=== PATIENT | female | born 1960 | race African-American/Black ===

== ENCOUNTER 2020-03-27 19:22 | Inpatient (IN) | payer OTHER ==
[~2020-03-27] VITALS: Ht 160 cm; Wt 38.2 kg
[2020-03-27 19:32] VITALS: Ht 160 cm; Wt 38.2 kg
--- NOTE | 2020-03-27 19:47 | NUR ---
PT BIB [facility] AND PLACED IN BED. PT PLACED ON MONITOR AND VS DONE. PT WITH C/O INCREASED GENERALIZED WEAKNESS WITH N/V/D TODAY. PT WITH HX OF STROKE WITH LT SIDE WEAKNESS. PT DENIES ANY FEVER, RESP ILLNESS, OR URINARY PROBLEMS AT THIS TIME. NO SIGNS OF DISTRESS.
[2020-03-27 20:18] LABS: BASOPHIL % 0.1 % (0-2); PLATELET COUNT 341 x10^3mcL (130-400); RED CELL DISTRIBUTION WIDTH 16.6 % (11.5-14.5)
--- NOTE | 2020-03-27 20:19 | NUR ---
PT STATING SHE IS UNABLE TO GIVE URINE SAMPLE AT THIS TIME.
[2020-03-27 20:38] LABS: ALBUMIN 4.3 g/dL (3.4-5.0); BILIRUBIN TOTAL 0.99 mg/dL (0.20-1.00); CALCIUM 10.2 mg/dL (8.5-10.1); CARBON DIOXIDE 17.4 mmol/L (21-32); CREATININE SERUM 1.4 mg/dL (0.6-1.0); MAGNESIUM 1.7 mg/dL (1.8-2.4); PHOSPHOROUS 4.1 mg/dL (2.5-4.9)
[2020-03-27 20:40] LABS: POTASSIUM SERUM 2.5 mmol/L (3.5-5.1); TOTAL PROTEIN, SERUM 8.9 g/dL (6.4-8.2)
--- NOTE | 2020-03-27 21:50 | NUR ---
PT RESTING IN BED ON RT SIDE WITH NO SIGNS OF DISTRESS.
--- NOTE | 2020-03-27 22:45 | NUR ---
PT RESTING IN BED WITH BREATHS EVEN AND UNLABORED.
--- NOTE | 2020-03-27 23:30 | NUR ---
PT GIVEN SENA CARE WITH FRESH LINENS.
--- NOTE | 2020-03-27 23:49 | NUR ---
RESIDENT AT BEDSIDE.
--- NOTE | 2020-03-27 23:50 | NUR ---
REPORT GIVEN TO DINAH HUANG.
[2020-03-28] VITALS (8 sets, daily range): BP systolic 108–182; BP diastolic 73–99
[2020-03-28] MEDS ORDERED: TOPROL XL25 MG PO (00:08)
[2020-03-28] MEDS ORDERED: FORTAMET1000 MG PO (00:08)
[2020-03-28] MEDS ORDERED: PANTOPRAZOLE SO40 M1 PO (00:09)
[2020-03-28] MEDS ORDERED: HORIZANT300 MG PO (00:09)
[2020-03-28] MEDS ORDERED: PLAVIX75 M1 PO (00:09)
[2020-03-28 00:10] LABS: CALCIUM 9.1 mg/dL (8.5-10.1); CARBON DIOXIDE 15.6 mmol/L (21-32); CREATININE SERUM 1.2 mg/dL (0.6-1.0)
[2020-03-28 00:20] LABS: POTASSIUM SERUM 2.7 mmol/L (3.5-5.1)
--- NOTE | 2020-03-28 00:25 | NUR ---
RECEIVED PT FROM ER VIA GURNEY ACCOMPANIED BY RN AND EMT. PT TRANSFERRED TO ICU BED 10 WITH NO COMPLICATIONS. PT CONNECTED TO FULL TUCK POINTER HELPER/CONTINOUS PULSE OXIMETRY, VITALS READING: HR 115, NIBP 128/73 MAP 92, RR 22, SPO2 99%. PT IS A/OX4. SPEECH IS CLEAR. BREATHING IS E/U ON RA. SYMMETRICAL CHEST EXPANSION NOTED. LW IV INTACT/SECURED, NO S/S OF INFILTRATION NOTED. GENERALIZED WEAKNESS, L>R. ABD IS SOFT, FLAT, NONTENDER TO PALPATION. BOWEL SOUNDS ACTIVE X4 QUADRANTS. PT STS SHE HAS LOOSE STOOLS. BED IN LOW POSITION. CALL LIGHT IN REACH. WILL CONT TO MONITOR.
--- NOTE | 2020-03-28 00:38 | NUR ---
BLOOD SUGAR 233. INSULIN GTT INITIATED AT THIS TIME @ 0.1 UNIT/KG/HR PER DKA PROTOCOL
[2020-03-28 00:49] LABS: MAGNESIUM 2.7 mg/dL (1.8-2.4); PHOSPHOROUS 2.1 mg/dL (2.5-4.9)
--- NOTE | 2020-03-28 01:00 | NUR ---
NEW IV PLACED TO RFA AND RW 22 GAUGE. FLUSHED 10 ML OF NS WITH NO S/S OF INFILTRATION NOTED
[2020-03-28 05:42] LABS: CALCIUM 9.3 mg/dL (8.5-10.1); CARBON DIOXIDE 16.6 mmol/L (21-32); CREATININE SERUM 1.1 mg/dL (0.6-1.0); MAGNESIUM 2.3 mg/dL (1.8-2.4); POTASSIUM SERUM 3.7 mmol/L (3.5-5.1)
--- NOTE | 2020-03-28 06:07 | NUR ---
BLOOD SUGAR 197. NS INFUSION STOPPED AT THIS TIME. D51/2NS INITIATED @ 150 ML/HR. INSULIN GTT TITRATED TO 0.05 UNITS/KG/HR PER DKA PROTOCOL
--- NOTE | 2020-03-28 06:50 | NUR ---
ENTERED PT'S ROOM TO FIND RFA AND RW IV'S DISLODGED, WITH CATH INTACT. NEW IV PLACED TO 22 GAUGE, FLUSHED 10 ML OF NS WITH NO S/S OF INFILTRATION NOTED
--- NOTE | 2020-03-28 07:20 | NUR ---
REPORT GIVEN TO FREDY HUANG FOR CONTINUITY OF CARE. ALL QUESTIONS/CONCERNS ADDRESSED. ENDORSING ALL CARE
[2020-03-28 09:31] LABS: CARBON DIOXIDE 19.8 mmol/L (21-32); CHLORIDE SERUM 111 mmol/L (98-107); GFR1 > 60 mL/min; GLUCOSE SERUM 300 mg/dL (74-106); MAGNESIUM 2.1 mg/dL (1.8-2.4); PHOSPHOROUS 1.3 mg/dL (2.5-4.9); POTASSIUM SERUM 3.4 mmol/L (3.5-5.1); SODIUM SERUM 147 mmol/L (136-145)
--- NOTE | 2020-03-28 10:27 | NUR ---
PER PT'S SISTER REPORT IN PAST FEW DAYS PT WAS SHOWING FORGETFUL. PT IS CONFUSED. FREQUENTLY REORIENT PT.
--- NOTE | 2020-03-28 11:52 | NUR ---
PT REPORTED BURNING AND A LITTL PROBLEM SWALLOW JUICE. PT'S GLUCOSE 109. INSULINE DRIP AT 0.05UNIT/HR, INCREASE D5 1/2 NS FROM 150 TO 175. WILL CONTINUE DKA PROTOCOL.
[2020-03-28 12:03] LABS: CALCIUM 7.8 mg/dL (8.5-10.1); CHLORIDE SERUM 107 mmol/L (98-107); GFR1 > 60 mL/min; MAGNESIUM 1.8 mg/dL (1.8-2.4); SODIUM SERUM 139 mmol/L (136-145)
[2020-03-28 12:16] LABS: GLUCOSE SERUM 560 mg/dL (74-106)
--- NOTE | 2020-03-28 12:22 | NUR ---
DR. BECKER AWARE PT'S K 2.9 AND PT'S COMPLAINING ABOUT SWALLOWING.
[2020-03-28 13:25] LABS: POTASSIUM SERUM 2.9 mmol/L (3.5-5.1)
--- NOTE | 2020-03-28 15:57 | NUR ---
PT'S BP 182/90, HR 113, HYDRALYZINE 10MG IVP GIVEN PER PRN ORDER. WILL RECHECK.
[2020-03-28 16:35] LABS: CALCIUM 8.7 mg/dL (8.5-10.1); CARBON DIOXIDE 23.7 mmol/L (21-32); CHLORIDE SERUM 110 mmol/L (98-107); CREATININE SERUM 0.9 mg/dL (0.6-1.0); GFR1 > 60 mL/min; GLUCOSE SERUM 90 mg/dL (74-106); MAGNESIUM 1.7 mg/dL (1.8-2.4); POTASSIUM SERUM 3.1 mmol/L (3.5-5.1); SODIUM SERUM 145 mmol/L (136-145)
--- NOTE | 2020-03-28 16:35 | NUR ---
AFTER HYDRAYLYZINE 10MG GIVEN, RECHECK PT'S BP 108/81, HR 113.
--- NOTE | 2020-03-28 18:47 | NUR ---
THROUGH SHIFT PT IS REORIENTED FREQUENTLY. PT CAM COOPERATE WITH CARE, AA/O X 3 AT THIS TIME. PT'S GAP CLOSE X 1 11.3 @ 1600. PT STILL REFUSED TO EAT, IVF D5 1/2 NS IS INFUSING AT 200ML/HR, LAST GLUCOSE CHECK 93. PT IS INCONTINENT, UNABLE TO GIVE URINE SPECIMEN FOR UA. 40MEQ KCL IV GIVEN PER ORDER FOR LOW K+. WILL ENODOSE PT'S CARE TO ONCOMING NURSE.
--- NOTE | 2020-03-28 19:15 | NUR ---
RECEIVED REPORT FROM FREDY HUANG. ASSUMING CARE. PT CONNECTED TO FULL NET DEVELOPER/CONTINOUS PULSE OXIMETRY. HOB ELEVATED 30 DEGREES. BED IN LOW POSITION. CALL LIGHT IN REACH. SEE NURSE SHIFT ASSESSMENT FOR FURTHER CARE
[2020-03-28 20:10] LABS: CALCIUM 8.5 mg/dL (8.5-10.1); CARBON DIOXIDE 23.5 mmol/L (21-32); CHLORIDE SERUM 109 mmol/L (98-107); CREATININE SERUM 0.8 mg/dL (0.6-1.0); GFR1 > 60 mL/min; GLUCOSE SERUM 73 mg/dL (74-106); MAGNESIUM 1.6 mg/dL (1.8-2.4); SODIUM SERUM 145 mmol/L (136-145)
[2020-03-28 20:19] LABS: PHOSPHOROUS 0.9 mg/dL (2.5-4.9)
--- NOTE | 2020-03-28 20:30 | NUR ---
DR. GALAN MADE AWARE OF CRITICAL LAB RESULT PHOS 0.9. ALSO MADE AWARE OF MAGNESIUM LEVEL 1.6. AWAITING ORDERS
--- NOTE | 2020-03-29 00:47 | NUR ---
ADJUNCT PHYSICAL EDUCATION INSTRUCTOR AT BEDSIDE FOR BLOOD DRAW
[2020-03-29 01:44] LABS: CALCIUM 8.5 mg/dL (8.5-10.1); CARBON DIOXIDE 26.5 mmol/L (21-32); CHLORIDE SERUM 106 mmol/L (98-107); CREATININE SERUM 0.9 mg/dL (0.6-1.0); GFR1 > 60 mL/min; GLUCOSE SERUM 103 mg/dL (74-106); MAGNESIUM 1.5 mg/dL (1.8-2.4); POTASSIUM SERUM 3.1 mmol/L (3.5-5.1); SODIUM SERUM 143 mmol/L (136-145)
[2020-03-29 01:45] LABS: PHOSPHOROUS 0.8 mg/dL (2.5-4.9)
--- NOTE | 2020-03-29 02:01 | NUR ---
DR. GALAN MADE AWARE OF CRITICAL LAB RESULT PHOS 0.8. ALSO MADE AWARE OF MAGNESIUM LEVEL 1.5 AND POTASSIUM 3.1. AWAITING ORDERS
--- NOTE | 2020-03-29 02:47 | NUR ---
BLOOD SUGAR 206. D51/2NS TITRATED TO 150 ML/HR
--- NOTE | 2020-03-29 02:53 | NUR ---
PT HAD 1 EMESIS EPISODE. ADMINISTERED ZOFRAN PER EMAR
[2020-03-29 03:09] VITALS: BP 92/51
[2020-03-29 04:34] LABS: CALCIUM 8.1 mg/dL (8.5-10.1); CARBON DIOXIDE 22.7 mmol/L (21-32); CHLORIDE SERUM 105 mmol/L (98-107); CREATININE SERUM 0.7 mg/dL (0.6-1.0); GFR1 > 60 mL/min; GLUCOSE SERUM 179 mg/dL (74-106); MAGNESIUM 1.8 mg/dL (1.8-2.4); POTASSIUM SERUM 3.2 mmol/L (3.5-5.1); SODIUM SERUM 140 mmol/L (136-145)
[2020-03-29 04:37] LABS: ALBUMIN 2.8 g/dL (3.4-5.0); PHOSPHOROUS 0.7 mg/dL (2.5-4.9)
[2020-03-29 04:43] LABS: BASOPHIL % 0.1 % (0-2); PLATELET COUNT 244 x10^3mcL (130-400)
--- NOTE | 2020-03-29 04:43 | NUR ---
DR. GALAN MADE AWARE OF CRITICAL LAB 0.7 WELL POTASSIUM LEVEL OF 3.2. PER DR. GALAN, WILL INPUT ORDERS
[2020-03-29 04:47] LABS: RED CELL DISTRIBUTION WIDTH 16.4 % (11.5-14.5)
--- NOTE | 2020-03-29 07:10 | NUR ---
REPORT GIVEN TO RYANN HUANG FOR CONTINUITY OF CARE. ALL QUESTIONS/CONCERNS ADDRESSED. ENDORSING ALL CARE
[2020-03-29 07:45] VITALS: BP 141/77
[2020-03-29 09:56] LABS: CALCIUM 8.4 mg/dL (8.5-10.1); CARBON DIOXIDE 24.1 mmol/L (21-32); CHLORIDE SERUM 104 mmol/L (98-107); CREATININE SERUM 0.6 mg/dL (0.6-1.0); GFR1 > 60 mL/min; GLUCOSE SERUM 129 mg/dL (74-106); SODIUM SERUM 139 mmol/L (136-145)
[2020-03-29 09:57] LABS: POTASSIUM SERUM 2.9 mmol/L (3.5-5.1)
--- NOTE | 2020-03-29 10:00 | NUR ---
REPORTED TO MD SIDDIQI THAT POTASSIUM IS 2.9, AND THAT POTASSIUM PHOSPHATE IS LATE DUE TO PHARMACY DELAYS
[2020-03-29 12:20] LABS: CALCIUM 7.9 mg/dL (8.5-10.1); CARBON DIOXIDE 22.5 mmol/L (21-32); CHLORIDE SERUM 105 mmol/L (98-107); CREATININE SERUM 0.6 mg/dL (0.6-1.0); GFR1 > 60 mL/min; GLUCOSE SERUM 129 mg/dL (74-106); MAGNESIUM 1.8 mg/dL (1.8-2.4); PHOSPHOROUS 2.3 mg/dL (2.5-4.9); POTASSIUM SERUM 3.1 mmol/L (3.5-5.1); SODIUM SERUM 138 mmol/L (136-145)
--- NOTE | 2020-03-29 12:30 | NUR ---
REPORTED TO MD BECKER ANION GAP CLOSED X2, PER PROTOCAL INSULIN DRIP & D5 1/2 NS D/C FLUIDS SWITCHED TO NS @ 150ML/HR
--- NOTE | 2020-03-29 14:51 | NUR ---
PRN HYDRALAZING ADMINISTERED FOR BP 162/77, HR 133, WILL CONTINUE TO MONITOR
--- NOTE | 2020-03-29 15:25 | NUR ---
REPORT GIVEN TO CATALINO HUANG, ENDORSED F/C PLACEMENT & K RIDER, ALL QUESTIONS & CONCERNS ANSWERED
[2020-03-29 17:00] VITALS: BP 131/46
--- NOTE | 2020-03-29 20:34 | NUR ---
Pt transfered from ICU to the floor at 1600. A/O times 4. VS upon arrival BP 131/46, p 129, T 98.8, pain 0/10, R 22, O2sat 87% on RA. Pt placed on O2 2L via NC and O2sat went up to 96%. Pt made comfortably in bed. Oriented pt to room and call light system. Nurse encourage pt to call nurse for assistance to prevent falls and pt agreed to call for help. Care plan endorsed to coming shift R.
[2020-03-29 21:48] VITALS: BP 133/67
--- NOTE | 2020-03-29 23:10 | NUR ---
NAYAK CATHETER INSERTED PER MD ORDER. OBSERVED STERILE TECHNIQUE, PROCEDURE TOLERATED WELL BY THE PT. CLEAR OLVIN COLOR URINE NOTED. WILL CONTINUE TO MONITOR.
--- NOTE | 2020-03-30 01:03 | NUR ---
PT RECEIVED IN BED RESTING COMFORTABLY WITH EYES CLOSED. EASILY AROUSABLE. PT A/O X4, ABLE TO MAKE HER NEEDS KNOWN. PT ON TELE 43, SINUS TACHY WITH HR OF 120'S, NO C/O CHEST PAIN. PT HAS +2 EDEMA NOTED ON LEFT HAND, RADIAL AND PEDAL PULSES PRESENT. RESP IS EVEN AND UNLABORED, NO SOB, NO ACUTE DISTRESS NOTED. ABDOMEN IS ROUND, SOFT AND NONTENDER, ACTIVE BOWEL SOUND NOTED. PT NOTED WITH GENERALIZED WEAKNESS, ABLE TO REPOSITION SELF IN BED WITH MINIMAL ASSIST. PT NOTED WITH MULTIPLE FLUID FILLED CLOSED BLISTER ON LEFT HAND AND EXCORIATION ON BUTTOCKS. WILL CONTINUE TO MONITOR PT. CALL LIGHT WITHIN REACH, BED IN LOWEST POSITION.
--- NOTE | 2020-03-30 01:20 | NUR ---
MADE ROUNDS. PT IN BED NO ACUTE DISTRESS NOTED.VERBALIZED DICOMFORT WITH RIGHT HAND IV SITE COVERED WITH MARQUITA BANDAGE. UPON REMOVING MARQUITA BANDAGE, RIGHT HAND APPEARS TO BE SWOLLEN WITH MULTIPLE CLOSED FLUID FILLED BLISTERS. RIGHT HAND ELEVATED. WILL CONTINUE TO MONITOR.
--- NOTE | 2020-03-30 05:00 | NUR ---
STARTED NEW IV ON THE LT WRIST G 22. PT TOLERATED PROCEDURE WELL.
--- NOTE | 2020-03-30 05:33 | NUR ---
DR. BECKER AND DR. DR. ARRIETA HERE TO GET UPDATE ON PT'S CONDITION DURING THE NIGHT. REPORTED THAT LANTUS WAS NOT GIVEN FOR BS OF 119 LAST NIGHT. ALSO REPORTED SWELLING AND BLISTERS TO BILAT HANDS. ALSO MADE AWARE OF PT'S POTASSIUM LEVEL YESTERDAY .
[2020-03-30 06:16] VITALS: BP 152/57
--- NOTE | 2020-03-30 07:10 | NUR ---
PT WAS GIVEN ORANGE JUICE W/ SUGAR X2 AND WAS RECHECKED X2. LAST BS =80. PT RESTING COMFORTABLY AT THIS TIME.
[2020-03-30 09:15] VITALS: BP 136/100
[2020-03-30 10:40] LABS: CALCIUM 7.7 mg/dL (8.5-10.1); CARBON DIOXIDE 24.6 mmol/L (21-32); CHLORIDE SERUM 108 mmol/L (98-107); CREATININE SERUM 0.8 mg/dL (0.6-1.0); GFR1 > 60 mL/min; GLUCOSE SERUM 128 mg/dL (74-106); MAGNESIUM 1.6 mg/dL (1.8-2.4); PHOSPHOROUS 2.2 mg/dL (2.5-4.9); SODIUM SERUM 144 mmol/L (136-145)
[2020-03-30 10:43] LABS: POTASSIUM SERUM 2.5 mmol/L (3.5-5.1)
[2020-03-30 10:46] LABS: BASOPHIL % 0.1 % (0-2); PLATELET COUNT 244 x10^3mcL (130-400)
[2020-03-30 10:51] LABS: RED CELL DISTRIBUTION WIDTH 15.3 % (11.5-14.5)
[2020-03-30 13:43] VITALS: BP 142/79
[2020-03-30 16:30] VITALS: BP 125/73
--- NOTE | 2020-03-30 17:19 | NUR ---
Initial Nutrition Assessment: 260B BAEZ, CIDNE 60F HR Nursing trigger: appears underweight/mal, N/V/D > 3d, poor PO > 3d Consult: FTT Dx: DKA PMHx: CVA, DM PSHx: none Labs: (03/30) WBC 3.8L, (03/29) BG 129H, BUN 2L, phos 2.3L, (03/27) A1C 10.4H Meds: Colace, lantus, Neutra-phos, Nicoderm, Reglan, Sodium chloride PRN meds: D50%, Humulin, Hydralazine, Colwich, Restoril, Tylenol, Zofran Diet: puree diet PO intake since admission: No entry Ht: 160.02cm/63in Wt: 38.2kg/84lbs BMI: 14.9 Bed scale: not accessible IBW: 52.27kg/115lbs %IBW: 73.1% UBW: 95lbs two weeks ago Age: 60 Food Allergies: NKFA Edema: +2 edema noted on left hand Last BM: none noted Skin: excoriation to bottom Luis: 16 Per H and P (03/27), pt is a 60 year old female with a past medical history of Diabetes and CVA, who lives in an extended stay facility, she was brought in by ambulance after her post anesthesia care unit nurse called 911. she reports feeling "extremely sick", Patient also stated she has been having some nausea/vomiting and diarrhea. Patient denies any fever, cough, headache, chest pain, abdominal pain, pain with urination or any sensory/motor deficit. She denied of known exposure to COVID-19. Patient blood sugar was found to be 440, she was found to have DKA and will be admitted to ICU for further care. Pt was admitted with dx: DKA, hypokalemia, dehydration, rhabdomyolysis, DEBBIE, hypercalcemia, hypomagnesemia, mild hypernatremia, h/ox of left CVA, DVT RD Note (03/30) Pt was lying in bed, whole body covered by blanket during visit. RD asked pt why she's under all her blanket, and pt replied that she's cold. It was hard to hear pt d/t pt covering her face during assessment. Pt denied GI distress, chewing/swallowing difficulty. Pt reported no appetite, and mentioned that she had been this skinny her whole life. Pt's left leg was visible during assessment, and signs of muscle wasting was observed in patellar region. Pt claimed that she's avoiding sugar and carbohydrate, and she was doing well maintaining her blood sugar. However, pt's A1C was 10.4. Per Dr. Shen, pt was on calorie counts, and family was agreeable to possible tube feeding. Problem with: N/V/D/C: none per pt Problems with: Chewing: Swallowing: none per pt Current appetite: no appetite per pt Recent wt change: unknown per pt %wt change: 12% weight loss in 2 weeks per wt reported by pt Vitamin/Supplement use: no per pt Special diet at home: pt tried to avoid sugar per pt Physical activity: n/a Nutrition education given (specify specific nutrition education and handout given): RD tried providing diabetic education, and pt refused. Pt stated that she was doing a good job maintaining her sugar level. RD encouraged pt to use her ONS provided with her diet, and pt acknowledged. Food-drug interactions? Education given? n/a Estimated Nutritional Needs Based on current body weight (38kg) Energy: 9540-9574 kcal/day (30-35 kcal/kg for severe underweight) Protein: 45-57 g/day (1.2-1.5 g/kg for severe underweight) Fluid: 1303-7232 mL/day (1 mL/kcal) Nutrition Diagnosis: 1. Severe underweight r/t pathophysiological cause a/e/b pt BMI < 16.5 (BMI=14.9 on 03/30), and signs of muscle wasting in patellar region. 2. Inadequate energy and protein intake r/t poor appetite a/e/b pt reported not having appetite. Intervention 1. Recommend continue Puree diet as tolerate 2. Recommend glucerna BID for lunch and dinner to aid PO intake. 3. Follow up with calorie counts. If enteral nutrition is needed, recommend glucerna 1.2 at 20 ml/hr. It will provide a volume of 480ml, 576kcal, 29g protein and 386.4ml fluid. 4. Pt is at risk of refeeding syndrome. Monitor and replenish electrolytes. Monitor/Evaluate Goal: PO intake at least 75% of estimated needs. Monitor: PO intake, ONS intake, Diet implementation, Labs, GI function F/U in 2-3 days as high risk 04/01-
--- NOTE | 2020-03-30 19:30 | NUR ---
PT RECEIVED IN BED, RESTING COMFORTABLY WITH EYES CLOSED. PT IS A/O X 3, ABLE TO MAKE HER NEEDS KNOWN. PT ON TELE 43 WITH SINUS TACHY HR READING 110-120'S, NO C/O CHEST PAIN. RESPE IS EVEN AND UNLABORED, NOTED WITH SOME EXP WHEEZING ON RIGHT UPPER LOBE, OCCASIONAL COUGHING/ CLEARING THROAT NOTED. SPO2 93% ON RA. NO ACUTE DISTRESS NOTED. RADIAL AND PEDAL PULSES PRESENT WITH REGULAR RYTHM, LUNA HAND NON PITTING EDEMA NOTED. PT STARTED ON CALORIE COUNTING PER REPORT FROM DAY SHIFT. WILL CONTINUE TO MONITOR ORAL INTAKE. DIET CHANGED TO PUREE PER AM NURSE. PT ON NAYAK CATH DRAINING CLEAR OLVIN COLOR URINE. GENERALIZED WEAKNESS NOTED WELL LEFT SIDED WEAKNESS, PT ABLE TO REPOSITION IN BED WITH ASSIST. EXCORIATION ON BUTTOCKS, AND LUNA MULTIPLE HAND FLUID FILLED BLISTERS NOTED. PT DNIES PAIN AT THIS TIME. CALL LIGHT WITHIN EASY REACH, BED IN LOWEST POSITION, WILL CONTINUE TO MONITOR FOR CHANGES IN CONDITION.
--- NOTE | 2020-03-30 19:33 | NUR ---
Patient received drowsy but oriented on RA. Patient noted to have occasional periods of forgetfulness. Re-oriented as needed throughout shift. Assessment completed and charted, vital signs taken and recorded. Patient's IV fluids were adjusted multiple times throughout shift. First to add dextrose (due to low blood sugar levels), and eventually d/c altogether. Patient's lunchtime glu 136 but dinnertime glu 98. Patient encouraged to eat but does not have an appetite. Patient has scheduled reglan. Report given to production supervisor off shift RN for continuation of care. Safety precautions in place, call light within reach. Calorie count taken and is noted below: Breakfast 1 spoonful jello Lunch 1 spoonful mash potatoes 5 spoonfuls soup 15ml ensure 10ml apple juice Dinner 50ml soup 2 spoonfuls mash potatoes 2 spoonfuls chicken
[2020-03-30 22:15] VITALS: BP 125/73
--- NOTE | 2020-03-31 02:38 | NUR ---
MADE ROUNDS, PT IS IN BED AWAKE RESTING COMFORTABLY. NO C/O PAIN, NO ACUTE DISTRESS NOTED AT THIS TIME. OFFERED ORAL INTAKE. SOME CLOSED FLUID FILLED BLISTERS ON LUNA HANDS NOTICED TO HAVE OPENED UP, KEPT SKIN CLEAN AND DRY. WILL CONT TO MONITOR.
[2020-03-31 05:54] VITALS: BP 137/74
--- NOTE | 2020-03-31 06:37 | NUR ---
PT IN BED AWAKE, RESTING COMFORTABLY. NO C/O PAIN AT THIS TIME. CONT ON CALORIE COUNTING PER MD DOCTOR. PT ORAL INTAKE THIS SHIFT FOLLOWS HALF CUP OF APPLE SAUCE 120 CC OJ 120 CC HOT TEA ENCOURAGED PT ORAL INTAKE. BS 96, NO COVERAGE GIVEN. SPECIMEN COLLECTED FOR UA. F/C WITH 80 CC URINE OUTPUT, DIAMOND DIE POLISHER REPORTED SOILED LINEN WITH URINE. IV TO LEFT WRIST REMAINED INTACT, NO S/S OF INFILTRATION. CALL LIGHT WITHIN EASY REACH WILL CONT TO MONITOR AND ENDORSE TO AM NURSE.
[2020-03-31 07:00] LABS: PLATELET COUNT 211 x10^3mcL (130-400)
--- NOTE | 2020-03-31 07:20 | NUR ---
RECEIVED BEDSIDE REPORT FROM NIGHT RN. PT IN BED AWAKE. NO ACUTE DISTRESS. PT ON TELE#43. RR EVEN AND UNLABORED ON RA. NAYAK CATH INTACT DRAINING TO GRAVITY. CALL LIGHT WITHIN REACH. BED LOCKED IN LOWEST POSITION. WILL CONTINUE TO MONITOR.
[2020-03-31 07:27] LABS: BASOPHIL % 0 % (0-2); RED CELL DISTRIBUTION WIDTH 16.5 % (11.5-14.5)
[2020-03-31 07:37] LABS: CALCIUM 7.9 mg/dL (8.5-10.1); CHLORIDE SERUM 109 mmol/L (98-107); CREATININE SERUM 0.6 mg/dL (0.6-1.0); GFR1 > 60 mL/min; GLUCOSE SERUM 95 mg/dL (74-106); MAGNESIUM 1.7 mg/dL (1.8-2.4); PHOSPHOROUS 2.1 mg/dL (2.5-4.9); SODIUM SERUM 144 mmol/L (136-145)
[2020-03-31 08:27] LABS: UA SPECIFIC GRAVITY >=1.030 (1.005-1.035); microscopic required? YES; urine erythrocyte 2+ (NEGATIVE)
[2020-03-31 08:28] VITALS: BP 153/72
--- NOTE | 2020-03-31 10:15 | NUR ---
PT REQUESTED YOGURT AND COTTAGE CHEESE. PT HAS POOR APPETITE. COTTAGE CHEESE BROUGHT TO PT FROM KITCHEN. WILL CONTINUE TO MONITOR.
[2020-03-31 12:06] VITALS: BP 120/67
--- NOTE | 2020-03-31 15:30 | NUR ---
PT ASLEEP IN BED. NO ACUTE DISTRESS. HOB ELEVATED. CALL LGIHT WITHIN REACH. ALL NEEDS MEET AT THIS TIME. WILL CONTINUE TO MONITOR.
[2020-03-31 15:55] VITALS: BP 133/72
--- NOTE | 2020-03-31 19:15 | NUR ---
BEDSIDE REPORT GIVEN TO NIGHT RN. CARE ENDORSED TO NIGHT RN.
[2020-03-31 20:48] VITALS: BP 136/64
--- NOTE | 2020-04-01 05:05 | NUR ---
@ 2000 A/A/O X4.DENIES ANY DISCOMFORT NOR CP @ THIS TIME.DENIES SOB.NOTED WITH LEFT SIDED WEAKNESS.TOTAL CARE. ON CALORIE COUNT.INSTRUCTED TO USE CALL LIGHT NEEDED;WITHIN REACH.AFEBRILE.VS STABLE.
--- NOTE | 2020-04-01 05:13 | NUR ---
@ 2100 FINGER STICK BLD SUGA 185.REGULAR ISULI 3 UNIT SUB Q ADM.DUE MEDS ADM.
--- NOTE | 2020-04-01 05:15 | NUR ---
@ 0000 DUE MED ADM.
--- NOTE | 2020-04-01 05:16 | NUR ---
@ 0400 ASLLEP IN NO ACUTE DISTRESS.CALL LIGHT WITHIN REACH.
--- NOTE | 2020-04-01 05:16 | NUR ---
@0200 RESTING COMFORTABLY IN NO ACUTE DISTRESS.
[2020-04-01 05:21] LABS: BASOPHIL % 0.1 % (0-2); PLATELET COUNT 222 x10^3mcL (130-400); RED CELL DISTRIBUTION WIDTH 16.2 % (11.5-14.5)
[2020-04-01 05:56] LABS: CALCIUM 7.6 mg/dL (8.5-10.1); CARBON DIOXIDE 28.9 mmol/L (21-32); CHLORIDE SERUM 106 mmol/L (98-107); CREATININE SERUM 0.6 mg/dL (0.6-1.0); GFR1 > 60 mL/min; GLUCOSE SERUM 136 mg/dL (74-106); MAGNESIUM 1.5 mg/dL (1.8-2.4); PHOSPHOROUS 2.4 mg/dL (2.5-4.9); POTASSIUM SERUM 3.3 mmol/L (3.5-5.1); SODIUM SERUM 143 mmol/L (136-145)
[2020-04-01 06:01] VITALS: BP 147/68
--- NOTE | 2020-04-01 07:07 | NUR ---
ENDORSED A/A IN NO ACUTE DISTRESS.NO S/S OF HYPO/HYPERGLYCEMIA NOTED.CALL LIGHT WITHI REACH.SAFETY MAINTAINED.
[2020-04-01 09:24] VITALS: BP 154/86
[2020-04-01 12:20] VITALS: BP 150/90
[2020-04-01 17:34] VITALS: BP 152/79
--- NOTE | 2020-04-01 18:12 | NUR ---
P.T. NOTES Pt REFUSED TO PARTICIPATE W/ P.T., EXPLAINED RISKS OF BEDBOUND, BENEFITS OF THERAPY, Pt STILL REFUSED, INITIALLY WAS PLEASANT CONVERSING W/ P.T. STAFF, BRIEFLY CHANGES MOOD & BECAME IRRITABLE, ARGUMENTATIVE, EASILY ANGRY; FF UP WHEN PARTICIPATIVE; CALL REYES, PHONE, TABLE IN REACH, BED ALARM ON, Pt TENDS TO COVER HER HEAD W/ HER BLANKET.
--- NOTE | 2020-04-01 18:37 | NUR ---
Pt alert and oriented and in a stable condition. All interventions carried out per protocol with no significant changes noted. new 22 g iv inserted in right forearm. calorie count continueing. pt AAOx4 but was removing her IV and tele leads so she was transferred to [facility] with a sitter. blisters noted on bilateral hands. left sided weakness noted.
[2020-04-01 20:14] VITALS: BP 149/80
--- NOTE | 2020-04-02 01:28 | NUR ---
@ 1999 A/A/ OX3.DENIES ANY DISCOMFORT NOR CP @ THIS TIME.DENIES SOB. ON CALORIE COUNT. NOTED BILATERAL HANDS WITH BLISTERS. OPTIFOAM ON SACRAL AREA D/I. AFEBRILE. BP 149/80 MM HG.O2 SAT ON RA 97. TELE SHOWED ST.
--- NOTE | 2020-04-02 01:37 | NUR ---
@ 2100 DUE MED ADM. FINGER STICK BLD SUGAR 197.REGULAR 3 UNITS SUB Q ADM. REFUSED SNACKS.
--- NOTE | 2020-04-02 01:39 | NUR ---
@ 0000 DUE MEDS ADM..
[2020-04-02 05:30] VITALS: BP 185/82
--- NOTE | 2020-04-02 06:41 | NUR ---
@ 0400 ASLEE IN NO ACUTE DISTRESS. CECI @ THE BS.
--- NOTE | 2020-04-02 06:41 | NUR ---
@ 0200 RESTING COMFORTABLY IN NO ACUTE DISTRESS.
--- NOTE | 2020-04-02 06:42 | NUR ---
@ 0610 FINGER STICK BLD SUGAR 97.
--- NOTE | 2020-04-02 06:43 | NUR ---
ENDORSED IN NO ACUTE DISTRESS.NO S/S OF HYPO/HYPERGLYCEMIA NOTED.SAFETY MAINTAINED.
[2020-04-02 09:00] VITALS: BP 146/71
[2020-04-02 12:30] VITALS: BP 128/61
--- NOTE | 2020-04-02 13:59 | NUR ---
PT IS AAOX4 AND COOPERATIVE. ON RA AND SAT 94% WITH NO DISTRESS NOTED. ON TELE NUMBER 43 AND IN NSR. ALL INTERVENTIONS CARRIED OUT PER PROTOCOL WITH NO SIGNIFICANT CHANGES IN PT STATUS NOTED. PT DENIES ANY PAIN, BLISTERS AND MILD SWELLING NOTED ON BILATERAL HANDS. IV PATENT AND FLUSHING WELL. CALL LIGHT WITHIN REACH AND BED AT LOW POSITION. ALL NEEDS MET AND SAFETY MAINTAINED.
[2020-04-02 15:54] VITALS: BP 150/74
[2020-04-02 21:09] VITALS: BP 100/42
[2020-04-03 05:53] VITALS: BP 126/62
--- NOTE | 2020-04-03 06:42 | NUR ---
NN: PT NOTED WITH MULTIPLE LOOSE BOWEL MOVEMENT, MD GALAN NOTIFIED, NO NEW ORDERS AT THIS TIME, WILL GIVE REPORT TO INCOMING RN
[2020-04-03 06:52] LABS: BASOPHIL % 0.1 % (0-2); PLATELET COUNT 223 x10^3mcL (130-400)
[2020-04-03 07:24] LABS: CARBON DIOXIDE 26.8 mmol/L (21-32); CHLORIDE SERUM 108 mmol/L (98-107); CREATININE SERUM 0.6 mg/dL (0.6-1.0); GFR1 > 60 mL/min; GLUCOSE SERUM 161 mg/dL (74-106); MAGNESIUM 1.8 mg/dL (1.8-2.4); POTASSIUM SERUM 3.6 mmol/L (3.5-5.1); SODIUM SERUM 145 mmol/L (136-145)
[2020-04-03 07:49] LABS: RED CELL DISTRIBUTION WIDTH 17.1 % (11.5-14.5)
[2020-04-03 08:44] VITALS: BP 119/57
--- NOTE | 2020-04-03 10:55 | NUR ---
AT 0715 - RECEIVED PATIENT FROM NIGHT NURSE. SLEEPING. RESPIRATIONS REGULAR. MONITOR SHOWING SINUS RHYTHM; RATE 80'S. NAYAK CATHETER INSITU AT 0850 - AWAKE, ALERT AND APPEARS ORIENTED. SAT UP IN BED FOR BREAKFAST. AT 0945 - HAS EATEN 50% OF PURREED FOOD FROM BREAKFAST TRAY. PATIENT REFUSED NICODERM PATCH.
--- NOTE | 2020-04-03 11:30 | NUR ---
NASAL SWAB FOR COVID-19 TAKEN AND DELIVERED TO LAB. SWAB DONE FOR PLACEMENT PURPOSES.
[2020-04-03 12:48] VITALS: BP 116/56
--- NOTE | 2020-04-03 16:08 | NUR ---
Follow-up Nutrition Assessment: 252A SASHA, BRY 60F HR Dx: DKA PMHx: CVA, DM Labs: (04/03) H/H 8.6/28L, CL 108H, BUN 5L, BG 161H, POC BG 157H, Calcium 8L, (04/01) Phos 2.4L, (03/29) Alb 2.8L, (03/27) 10.4H, AST 45H Meds: Colace, Lantus, Neutra-phos, Nicoderm, Reglan, Remeron PRN meds: D50%, Humulin, Hydralazine, Mucinex, Restoril, Tylenol, Zofran Diet: puree diet, glucerna BID for lunch and dinner PO Intake: 40-90% x 5 meals with average PO intake of 60% Weights: (04/03) 38.2kg, (03/30) 38.2kg/84lbs *no change Edema: none noted Last BM: 04/02 Skin: closed blisters on hand Luis: [address] (03/30), Pt was lying in bed, whole body covered by blanket during visit. RD asked pt why she's under all her blanket, and pt replied that she's cold. It was hard to hear pt d/t pt covering her face during assessment. Pt denied GI distress, chewing/swallowing difficulty. Pt reported no appetite, and mentioned that she had been this skinny her whole life. Pt's left leg was visible during assessment, and signs of muscle wasting was observed in patellar region. Pt claimed that she's avoiding sugar and carbohydrate, and she was doing well maintaining her blood sugar. However, pt's A1C was 10.4. Per Dr. Shen, pt was on calorie counts, and family was agreeable to possible tube feeding. RD Note (04/03): Pt had average PO intake of 60% since last visit. Pt's diet approximately provided 1197kcal and 56g protein meeting 100% of estimated kcal needs and protein needs. Pt was seen lying in bed, covered by blanket. However, pt was more engaging with the conversation this time, and she got out of her blanket. Pt reported good appetite and being hungry. Pt reported tolerating diet with no chewing/swallowing difficulty, and pt had been drinking her supplements. However, pt had 25% of her lunch tray per observation, and glucerna was untouched. Encouraged pt to increase PO intake and keep drinking ONS comes with meals, and pt acknowledged. RD tried follow up with calories count, but it was not available d/t they were not filled out per dietary assistant. Estimated Nutritional Needs Based on current body weight (38kg) Energy: 6103-1209 kcal/day (30-35 kcal/kg for severe underweight) Protein: 45-57 g/day (1.2-1.5 g/kg for severe underweight) Fluid: 5416-5941 mL/day (1 mL/kcal) Nutrition Diagnosis: (ongoing) 1. Severe underweight r/t pathophysiological cause a/e/b pt BMI < 16.5 (BMI=14.9 on 03/30), and signs of muscle wasting in patellar region. (resolved) 2. Inadequate energy and protein intake r/t poor appetite a/e/b pt reported not having appetite. Intervention 1. Continue Puree diet as tolerate 2. Continue glucerna BID for lunch and dinner to aid PO intake. 3. RD will keep monitor pt's PO intake and ONS intake. 4. Continue to encourage PO and ONS intake. 5. RD will follow up with MD/ACCURACY EXPERT for alternative nutrition. If enteral nutrition is needed, recommend glucerna 1.2 at 20 ml/hr. It will provide a volume of 480ml, 576kcal, 29g protein and 386.4ml fluid. Monitor/Evaluate Goal: PO intake at least 75% of estimated needs. (met, ongoing goal) Monitor: PO intake, ONS intake, Diet implementation, Labs, GI function F/U in 2-3 days as high risk
--- NOTE | 2020-04-03 16:08 | NUR ---
1. Continue Puree diet as tolerate 2. Continue glucerna BID for lunch and dinner to aid PO intake. 3. RD will keep monitor pt's PO intake and ONS intake. 4. Continue to encourage PO and ONS intake. 5. RD will follow up with MD/SAP HANA ARCHITECT for alternative nutrition. If enteral nutrition is needed, recommend glucerna 1.2 at 20 ml/hr. It will provide a volume of 480ml, 576kcal, 29g protein and 386.4ml fluid.
[2020-04-03 16:51] VITALS: BP 122/62
--- NOTE | 2020-04-03 19:16 | NUR ---
SLEEPING GREATER PART OF AFTERNOON. WHEN AWAKE, ORIENTED X 3. VSS WNL, AFEBRILE. IV SALINE LOCKED. PATIENT REFUSING SOME MEDS. EATING A PUREED DIET. ENCOURAGED FOOD CONSUMPTION. NAYAK CATHETER DRAINING OLVIN URINE. CARE ENDORSED TO NIGHT NURSE.
[2020-04-03 21:00] VITALS: BP 106/55
--- NOTE | 2020-04-03 21:02 | NUR ---
PT. AWAKE, ALERT, ORIENTED TO SELF AND PLACE. DENIES HEADACHE OR DIZZINESS. BREATH SOUNDS CLEAR THROUGHOUT LUNG APARICIO, RESP. EVEN, UNLABORED. NO SOB NOTED. PT. ON RA. NO IV ACCESS AT THIS TIME. PEDAL PULSES MODERATE. TRACE EDEMA TO LUNA HANDS. BLISTERS TO LUNA HANDS, NOTEMAN, NO DRAINAGE NOTED AT THIS TIME. F/C DRAINING WELL TO GRAVITY. DRSG TO SACRAL REGION, CDI. CALL LIGHT WITHIN REACH.
--- NOTE | 2020-04-04 00:15 | NUR ---
PT. REFUSED MEDICATION FOR MIDNIGHT. PT. STATED THAT SHE DOES NOT NEED MEDICATION FOR HER STOMACH BUT NEEDS HER OTHER CONCERNS ADDRESSED. CONCERNS WERE REGARDING THE REMOVAL OF HER F/C SO SHE COULD GO HOME. THOSE CONCERNS WERE ADDRESSED BUT PT. STILL DID NOT WANT HER MIDNIGHT MEDDS, REGLAN AND NEUTRA PHOS.
[2020-04-04 05:04] VITALS: BP 148/64
--- NOTE | 2020-04-04 06:19 | NUR ---
PT, WAS DOZING STILL, AWAKENED FOR AM MEDICATIONS. PT. A BIT AGITATED AFTER WAKING, BUT TOOK HER MEDICATIONS. IV SITE REMAINS HEPLOCKED AND PATENT. NO C/O PAIN THROUGHOUT THE NIGHT. BLISTER TO LUNA DORSAL HAND WITHOUT OOZING. 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 CALL LIGHT WITHIN REACH. WILL ENDORSE PT CARE TO INCOMING NURSE.
--- NOTE | 2020-04-04 07:30 | NUR ---
RECEIVED PT LYING IN BED A/A. BREATHING EQUAL/UNLABORED ON RA. NO ACUTE PAIN/DISTRESS. IV SITE WNL. BLISTERS TO BILAT HANDS. BED IN LOW POSITION, CALL LIGHT IN REACH, SAFETY PRECAUTIONS IN PLACE. WILL CONTINUE TO MONITOR
[2020-04-04 08:00] VITALS: BP 140/69
--- NOTE | 2020-04-04 12:30 | NUR ---
PT LYING IN BED A/A. BREATHING EQUAL/UNLABORED ON RA. NO ACUTE CHANGES/PAIN/DISTRESS. IV SITE WNL. NAYAK CLAMPED FOR BLADDER TRAINING AND REMOVAL. WILL CONTINUE TO MONITOR
[2020-04-04 12:57] VITALS: BP 120/59
--- NOTE | 2020-04-04 15:20 | NUR ---
.NAYAK REMOVED PER ORDER. PT ADDI WELL. 400ML OUTPUT
--- NOTE | 2020-04-04 15:25 | NUR ---
PT. ADMITTED WITH LOW LUCILLE SCALE AT RISK, AND CHANGE OF SKIN CONDITION WITH MULTIPLE BLISTERING TO RIGHT AND LEFT HANDS. CONTINUE TO FOLLOW PRESSURE ULCER PREVENTION INTERVENTIONS. PT IS AT BED REST, SHEET COVER FROM HEAD TO TOE, PT. REFUSED SKIN ASSESSMENT, ONLY BRING OUT THE RIGHT HAND AND STATE "YOU CAN TAKE A QUICK LOOK". EXPLAIN TO PT SKIN ASSESSMENT TO BUTTOCKS AND LEFT HAND, PT. REFUSED. RISK AND BENEFIT EXPLAINED.PT. ONLY ALLOW ME TO APPLY DRESSING TO RIGHT HAND. POC DISCUSSED WITH PRIMARY RN AND PT. PT VERBALIZES UNDERSTANDING. 1:1 SITTER AT BEDSIDE. BED IS AT LOW POSITION. RIGHT HAND MULTIPLE CLOSE CLEAR FLUIDS BLISTERS, 2 OPEN BLISTERS WITH LARGEST 1.5X1.5X0.1CM ON DORSAL HAND WOUND BED RED AND DRY, NO ODOR. SMALLEST TO RIGHT 4TH FINGER 0.8X0.5X0.1CM, WOUND BED IS PINK AND DRY, NO ODOR. ABLE TO MOVE ALL 5 FINGERS WITHOUT DIFFICULTY. RECOMMENDATIONS -APPLY ADAPTIC DRESSING TO BILATERAL HANDS BLISTERS AND WRAP WITH KERLIX ROLLS LOOSELY AND SECURE WITH TAPE QD AND PRN IF SOILING. -TURN AND REPOSITION PATIENT Q 2H -ASSESS AND MONITOR SKIN CONDITION DURING POSITION CHANGE -OFFLOAD BILATERAL HEELS BY PLACING PILLOWS UNDER CALVES AT ALL TIMES, UNLESS OTHERWISE CONTRAINDICATED -PRESSURE REDISTRIBUTION BY PLACING PILLOWS AND OFFLOADING SACRALCOCCYX -KEEP SKIN CLEAN AND DRY AT ALL TIMES. -APPLY Z-GUARD TO BUTTOCKS MAD BID AND PRN IF SOILING
[2020-04-04 16:54] VITALS: BP 124/61
--- NOTE | 2020-04-04 18:23 | NUR ---
PT LYING IN BED A/A. BREATHING EQUAL/UNLABORED ON RA. NO ACUTE CHANGES/PAIN/DISTRESS. IV SITE WNL. BANDAGE TO R. HAND, CDI. BED IN LOW POSITION, CALL LIGHT IN REACH, SAFETY PRECAUTIONS IN PLACE. WILL ENDORSE TO NIGHT NURSE
--- NOTE | 2020-04-04 19:40 | NUR ---
RECEIVED PT FROM DAYSHIFT NURSE. PT IS AAOX4, HAS EPISODES OF FORGETFULLNESS.PT DENIES HEADACHE/NAUSEA/DIZZINESS AT THIS TIME. PT IS MED SURG PATIENT, DENIES CHEST PAIN AT THIS TIME. OBSERVED NO ACUTE DISTRESS AT THIS TIME, PT DENIES SOB, ON RA. LAST BM 04/02 PER DAYSHIFT NURSE, VOIDS FREELY WITH NO ASSISTANCE. PT HAS IV TO RIGHT WRIST, IV SITE IS PATENT, NO REDNESS OR SWELLING AT THIS TIME. PT DENIES ASSESSMENT AT THIS TIME. PT STATED SHE DID NOT WANT NURSE TO TOUCH HER FOR ASSESSMENT. PT WAS IN A TENSE MOOD, POOR COMMUNICATE AND COOPERATION WITH NURSE. ALL COMFORT CARE ACCOUNTED FOR AT THIS TIME. BED IN LOWEST POSITION, CALL LIGHT WITHIN REACH. WILL CONTINUE TO MONITOR.
[2020-04-04 20:16] VITALS: BP 104/57
--- NOTE | 2020-04-04 22:12 | NUR ---
PATIENT REFUSED ALL MEDICATIONS. COMMUNICATED WITH DOCTORS PHERESIS SPECIALIST. ALL QUESTIONS/CONCERNS ADDRESSED.
--- NOTE | 2020-04-05 01:14 | NUR ---
PATIENT IS RESTING INTERMITTENTLY. PATIENT CONTINUES TO READJUST HERSELF IN BED, ASKED HER TO REPOSITION FOR SAFETY PRECAUTIONS, PT HAS REFUSED. PT HAS ALSO REFUSED TO TAKE MIDNIGHT MEDICATIONS. PATIENT IS UNCOOPERATIVE WITH STAFF, CONTINUES TO BE IN A TENSE MOOD. ALL COMFORT CARE ACCOUNTED FOR AT THIS TIME. BED IN LOWEST POSITION, CALL LIGHT WITHIN REACH. WILL CONTINUE TO MONTIOR.
[2020-04-05 05:16] VITALS: BP 135/79
--- NOTE | 2020-04-05 05:19 | NUR ---
PATIENT RESTED INTERMITTENTLY THROUGHOUT THE NIGHT. NO ACUTE CHANGES IN PATIENT'S STATUS THROUGHOUT THE NIGHT. PT STILL REMAINS IN A TENSE MOOD, REPOSITIONED HERSELF THROUGHOUT THE NIGHT IN DIFFERENT SLEEPING POSITONS AND REFUSED ALL MEDICATIONS. ALL COMFORT CARE ACCOUNTED FOR AT THIS TIME. BED IN LOWEST POSITION,CALL LIGHT WITHIN REACH. WILL CONTINUE TO MONITOR UNTIL APPROPRIATE TO ENDORSE TO DAYSHIFT NURSE.
--- NOTE | 2020-04-05 06:21 | NUR ---
PATIENT IS RUDE AND UNCOOPERATIVE WITH STAFF. DENIED ALL MEDICATION/GLUCOSE CHECK. EDUCATED PATIENT ON THE IMPORTANCE OF THE MEDICATIONS AND CHECKING HER SUGAR LEVEL DUE TO HER ADMITTING DIAGNOSIS, PT STILL REFUSED STATED SHE DID NOT NURSE TO TOUCH HER. PATIENT ALSO REFUSED TO HAVE PILLOW UNDER LEGS TO RELIEVE FROM PRESSURE, PT STATED IT WASN'T NECESSARY AND SHE DID NOT WANT PREVENTATIVE CARE. WAS ABLE TO CHANGE PATIENT FROM SOILED LINENS WITH AID FROM DIXONAC OPERATOR. ALL COMFORT CARE ACCOUNTED FOR AT THIS TIME. BED IN LOWEST POSITION, CALL LIGHT WITHIN REACH.
--- NOTE | 2020-04-05 06:23 | NUR ---
RECEIVED CALL FROM LABORATORY THAT PATIENT HAS REFUSED LABS THIS MORNING WELL.
--- NOTE | 2020-04-05 07:11 | NUR ---
ENDORSED CARE TO DAYSHIFT NURSE. ALL QUESTIONS/CONCERNS ADDRESSED.
--- NOTE | 2020-04-05 07:13 | NUR ---
RECEIVED PT LYING IN BED A/A. BREATHING EQUAL/UNLABORED ON RA. NO ACUTE PAIN/DISTRESS. IV SITE WNL. BED IN LOW POSITION, CALL LIGHT IN REACH, SAFETY PRECAUTIONS IN PLACE. WILL CONTINUE TO MONITOR
[2020-04-05 08:30] VITALS: BP 142/72
--- NOTE | 2020-04-05 10:46 | NUR ---
WOUND CARE DONE PER ORDERS, PT ADDI WELL.
--- NOTE | 2020-04-05 12:00 | NUR ---
PT LYING IN BED A/A. BREATHING EQUAL/UNLABORED ON RA. NO ACUTE CHANGES/PAIN/DISTRESS. IV SITE WNL. PT REFUSED AFTERNOON INSULIN. REINFORCED DM EDUCATION. WILL CONTINUE TO MONITOR
[2020-04-05 12:19] VITALS: BP 117/64
[2020-04-05] MEDS ORDERED: REM15 PO (14:21)
[2020-04-05] MEDS ORDERED: APR20I IV (14:21)
[2020-04-05] MEDS ORDERED: TYL325 PO (14:21)
[2020-04-05] MEDS ORDERED: RES15 PO (14:22)
[2020-04-05] MEDS ORDERED: DEXPF IV (14:22)
[2020-04-05] MEDS ORDERED: BG FS (14:22)
[2020-04-05] MEDS ORDERED: ZOFI IV (14:23)
[2020-04-05] MEDS ORDERED: MUCINEX600 MG PO (14:23)
[2020-04-05] MEDS ORDERED: COL100 PO (14:23)
[2020-04-05] MEDS ORDERED: REG10I IV (14:24)
[2020-04-05] MEDS ORDERED: NIC14 TD (14:27)
--- NOTE | 2020-04-05 15:59 | NUR ---
Follow-up Nutrition Assessment: 252A SASHA, BRY 60F HR Dx: DKA PMHx: CVA, DM Labs: (03/05) POC glucose 218H, (04/03) H/H 8.6/28L, CL 108H, BUN 5L, BG 161H, (03/27) A1C 10.4H (03/29) albumin 2.8L Meds: Colace, Glucophage, Lantus, Neutra-phos, Nicoderm, Reglan, Remeron PRN meds: D50%, Humulin, Hydralazine, Mucinex, Restoril, Tylenol, Zofran Diet: Puree diet with Glucerna for lunch and dinner, Ensure with breakfast PO Intake: (04/04) B: Pt only had juice and glucerna for breakfast, L: 60% with glucerna Weights: (04/05) 38.2kg, (04/03) 38.2kg, (03/30) 38.2kg/84lbs *no change Edema: no edema Last BM: 04/05 Skin: Scattered Blisters to bilateral hands Luis: [address] (04/03): Pt had average PO intake of 60% since last visit. Pt's diet approximately provided 1197kcal and 56g protein meeting 100% of estimated kcal needs and protein needs. Pt was seen lying in bed, covered by blanket. However, pt was more engaging with the conversation this time, and she got out of her blanket. Pt reported good appetite and being hungry. Pt reported tolerating diet with no chewing/swallowing difficulty, and pt had been drinking her supplements. However, pt had 25% of her lunch tray per observation, and glucerna was untouched. Encouraged pt to increase PO intake and keep drinking ONS comes with meals, and pt acknowledged. RD tried follow up with calories count, but it was not available d/t they were not filled out per nutrition and dietetics instructor. RD Note (04/05): Pt was seen lying in bed during bedside visit. Per pt, she had fair appetite, and pt denied GI issues. Pt stated that she was hungry, but she was waiting for RN to help her eat. Pt also mentioned that she had been drinking ONS provided by [facility]. Per RN, pt did not have breakfast today, and pt told MD and RN that she just did not feel hungry. Per Calorie count, only dinner on 04/02, lunch and dinner on 04/04 were recorded. Pt's PO intake was inconsistent, and pt had good appetite for dinner on 04/02 and dinner on 04/04, and pt had been drinking ONS consistently. However, per nurse discharge, pt is being d/c to SNF today. Estimated Nutritional Needs Based on current body weight (38kg) Energy: 0242-0746 kcal/day (30-35 kcal/kg for severe underweight) Protein: 45-57 g/day (1.2-1.5 g/kg for severe underweight) Fluid: 1604-5224 mL/day (1 mL/kcal) Nutrition Diagnosis: (ongoing) 1. Severe underweight r/t pathophysiological cause a/e/b pt BMI < 16.5 (BMI=14.9 on 03/30), and signs of muscle wasting in patellar region. (resolved) 2. Inadequate energy and protein intake r/t poor appetite a/e/b pt reported not having appetite. Intervention 1. Continue Puree diet as tolerate 2. Continue glucerna BID for lunch and dinner to aid PO intake. 3. RD will keep monitor pt's PO intake and ONS intake. 4. Continue to encourage PO and ONS intake. Monitor/Evaluate Goal: PO intake at least 75% of estimated needs. (met, ongoing goal) Monitor: PO intake, ONS intake, Diet implementation, Labs, GI function F/U in 2-3 days as high risk 04/07-04/08
--- NOTE | 2020-04-05 16:05 | NUR ---
CALLED [facility] AND GAVE REPORT TO LAYLA HUANG
--- NOTE | 2020-04-05 16:16 | NUR ---
[facility]CHARGE INSTRUCTIONS[facility]ICATION[facility]. PT VERBALIZED UNDERSTANDING OF ALL INSTRUCTIONS.
--- NOTE | 2020-04-05 18:54 | NUR ---
PT DISCHARGED TO [facility]. PT A/A. ORIENTED X4. BREATHING EQUAL/UNLABORED ON RA. NO ACUTE PAIN/DISTRESS. IV INTACT, WNL. PT TRANSPORTED BY [facility] TO [facility]. ALL BELONGINGS WITH PT
== END 2020-04-05 18:56 | DRG 420 ==
LOC: ED 19:22 → DU 22:28 → IC 22:28 → DU 03-29 15:54 → MU 04-03 13:29
PROVIDERS: Emergency Medicine; ADMIT Internal Medicine; ATTEND Internal Medicine
DX: E11.10 Type 2 diabetes mellitus with ketoacidosis without coma (principal); E43 Unspecified severe protein-calorie malnutrition; N17.9 Acute kidney failure, unspecified; M62.82 Rhabdomyolysis; E83.52 Hypercalcemia; E83.42 Hypomagnesemia; E86.0 Dehydration; E11.9 Type 2 diabetes mellitus without complications; F41.9 Anxiety disorder, unspecified; R62.7 Adult failure to thrive; E87.6 Hypokalemia; E87.1 Hypo-osmolality and hyponatremia; Z20.828 Contact with and (suspected) exposure to other viral communicable diseases; Z86.73 Personal history of transient ischemic attack (TIA), and cerebral infarction without residual deficits; Z79.899 Other long term (current) drug therapy; Z68.1 Body mass index [BMI] 19.9 or less, adult
CPT/HCPCS: 36600; 82962; 97530-GP; G0378; J0360; J1815; J2405; J2765; J3475; J3480; J3490; J7030; J7042; J7050; Q0092; U0003-CS